=== PATIENT | female | born 1990 | race Hispanic/Latino ===

== ENCOUNTER 2022-12-25 18:18 | Inpatient (IN) | payer BC, SELFPAY ==
[2022-12-26] MEDS ORDERED: hydrALAZINE 20 MG/ML VIAL SLOW IVP PRN (00:03)
[2022-12-26] MEDS ORDERED: Acetaminophen 325 MG TAB PO PRN (00:05)
[2022-12-26] MEDS ORDERED: Ondansetron ODT 4 MG TAB PO PRN (00:05)
[2022-12-26] MEDS ORDERED: Calcium Carbonate 500 MG ChewTAB PO PRN (00:05)
[2022-12-26 01:25] VITALS: BMI 44.6
[2022-12-26 04:59] LABS: Hematocrit 37.3 % (36.0-47.0); Hemoglobin 12.5 g/dL (12.0-16.0); Mean Corpuscular HGB CONC 33.5 g/dL (32.0-36.0); Mean Corpuscular Volume 89.7 fl (78.0-98.0); Mean Platelet Volume 9.7 fL (7.4-10.4); Platelet Count 335 10x3/uL (130-400); RBC Distribution Width 13.2 % (11.5-14.5); Red Blood Cell (RBC) Count 4.16 mill/uL (4.20-5.40)
[2022-12-26 05:23] LABS: Manual Diff?? YES
[2022-12-26 05:24] LABS: Delete Auto Diff?? YES
[2022-12-26 05:30] LABS: Anion Gap 16 mmol/L (10-20); BUN (Urea Nitrogen) 10 mg/dL (7.0-18.7); Calc. Creatinine Clearance 198 mL/min (70-130); Calcium 8.9 mg/dL (7.8-10.44); Carbon Dioxide 18 mmol/L (22-29); Cardiac Risk 2.7 (Less than 4.5); Chloride 109 mmol/L (98-107); Cholesterol 146 mg/dl (< 200 Desired); Estimated GFR 115; Glucose 97 mg/dL (70-105); HDL Cholesterol 55 mg/dL (>60 Neg Risk); LDL Cholesterol, Calculated 60 mg/dL; Potassium 3.5 mmol/L (3.5-5.1); Sodium 139 mmol/L (136-145); Triglycerides 154 mg/dL (Less than 150)
[2022-12-26 06:13] LABS: Band 1 % (5-11); CellaVision Operator ID LAB.CLH1; Eosinophils 1 % (0-10); Hypochromia SLIGHT = 6-15 cells HPF (0-5); Lymphocytes 42 % (21-51); Monocytes 7 % (0-10); Neutrophil 48 % (42-75); Platelet Adequacy Comment Platelets Normal; Total Cell Count 100
[2022-12-26] MEDS: Aspirin 81 mg Enteric Coated Tablet PO SCH (08:08)
[2022-12-26 13:22] LABS: INR-International Normal Ratio 0.9; PTT 32.4 sec (22.9-36.1); Prothrombin Time 12.8 sec (12.0-14.7)
[2022-12-26 13:23] LABS: D-Dimer Test 0.4 *mcg/mL (0.27-0.43)
[2022-12-26 14:25] LABS: HEX PHOS LA Tube 1 46.7 SEC; HEX PHOS LA Tube 2 39.3 SEC; Hexagonal Phospholipid Neut 7.4 SEC (0-8.0)
[2022-12-26] MEDS ORDERED: Atorvastatin Calcium 40 MG TAB PO SCH (21:00)
[2022-12-27] MEDS ORDERED: BuPROPion XL 150 MG ER.TAB PO SCH (09:00)
[2022-12-27] MEDS: Aspirin 81 mg Enteric Coated Tablet PO SCH (09:04)
[2022-12-27 12:06] VITALS: BP 131/90; TEMP 98.3
[2022-12-27 13:44] LABS: Cardiolipin IgA Ab 4.8 APL-U/mL (<14 Negative); Cardiolipin IgG Ab 0.7 GPL-U/mL (<10 Negative); Cardiolipin IgM Ab Less than 0.9 MPL-U/mL (<10 Negative); EliA APS New Method **** NEW METHOD ****
== END 2022-12-27 13:52 | disposition home or self-care (01) | DRG 65 ==
LOC: ERS 18:18 → 2SE 23:21 → OBSVTOIN 12-26 14:52
PROVIDERS: ADMIT Student in an Organized Health Care Education/Training Program; ATTEND Internal Medicine
DX: I63.9 Cerebral infarction, unspecified (principal); G81.94 Hemiplegia, unspecified affecting left nondominant side; F32.A Depression, unspecified; F41.9 Anxiety disorder, unspecified; F90.9 Attention-deficit hyperactivity disorder, unspecified type; E78.5 Hyperlipidemia, unspecified; Z90.49 Acquired absence of other specified parts of digestive tract
CPT/HCPCS: 36415; 70551; 80048; 80061; 83090; 85025; 85300; 85303; 85305; 85307; 85379; 85598; 85610; 85730; 86147; 93306; 99285

== ENCOUNTER 2025-02-22 16:09 | Observation (INO) | payer BC, OTHER ==
[~2025-02-22 16:09] MED LIST: Iopamidol 370 76% 100 ML VIAL ONE
[2025-02-22 16:31] LABS: #Basophils 0.05 10x3/uL (0.0-0.2); #Eosinophils 0.10 10x3/uL (0.0-0.7); #Monocytes 0.63 10x3/uL (0.11-0.59); #Neutrophils 7.52 10x3/uL (1.40-6.50); %Basophils 0.4 % (0.0-1.0); %Eosinophils 0.8 % (0.0-10.0); %Lymphocytes 36.0 % (21.0-51.0); %Monocytes 4.8 % (0.0-10.0); %Neutrophils 57.5 % (42.0-75.0); Hematocrit 42.6 % (36.0-47.0); Hemoglobin 13.9 g/dL (12.0-16.0); Mean Corpuscular Hemoglobin 29.6 pg (27.0-31.0); Mean Corpuscular Volume 90.8 fL (78.0-98.0); Platelet Count 308 10x3/uL (130-400); Red Blood Cell (RBC) Count 4.69 mill/uL (4.20-5.40); White Blood Cell (WBC) Count 13.06 10x3/uL (4.8-10.8)
[2025-02-22 16:49] LABS: INR-International Normal Ratio 1.0; Prothrombin Time 12.9 sec (12.0-14.7)
[2025-02-22 16:50] LABS: PTT 33.4 sec (22.9-36.1)
[2025-02-22 16:51] LABS: ALT (SGPT) 20 U/L (Less than 34); AST (SGOT) 31 U/L (11-34); Albumin 4.2 g/dL (3.1-4.5); Alkaline Phosphatase 117 U/L (40-110); Anion Gap 16 mmol/L (10-20); BUN (Urea Nitrogen) 10 mg/dL (7.0-18.7); Bilirubin, Total 0.4 mg/dL (0.3-1.2); Calc. Creatinine Clearance 0 mL/min (70-130); Calcium 9.1 mg/dL (7.8-10.44); Carbon Dioxide 19 mmol/L (22-29); Chloride 109 mmol/L (98-107); Globulin 3.4 g/dL (2.4-3.5); Glucose 99 mg/dL (70-105); Potassium 5.3 mmol/L (3.5-5.1); Sodium 139 mmol/L (136-145)
[2025-02-22] MEDS ORDERED: Aspirin Chewable 81 MG TAB ONE (17:28)
[2025-02-22] MEDS ORDERED: Ondansetron PF 4 MG/2 ML Vial IVP PRN (18:16)
[2025-02-22] MEDS ORDERED: hydrALAZINE 20 MG/ML VIAL SLOW IVP PRN (18:16)
[2025-02-22] MEDS ORDERED: Calcium Carbonate 500 MG ChewTAB PO PRN (18:16)
[2025-02-22] MEDS ORDERED: Electrolyte Replacement Protocol 1 EACH FS SCH (18:30)
[2025-02-22] MEDS ORDERED: PHOS-NAK 1 PKT PACK PO PRN (18:45)
[2025-02-22] MEDS ORDERED: Magnesium 2 GM/50 ML(in water) 2 GM in Premix 1 BAG IVPB PRN (18:45)
[2025-02-22] MEDS ORDERED: Potassium Chloride 20 MEQ in Premix 1 BAG IVPB PRN (18:45)
[2025-02-22] MEDS ORDERED: Senokot S 8.6-50 MG TAB PO PRN (21:00)
[2025-02-23 00:16] VITALS: BMI 47.7
[2025-02-23] MEDS: Acetaminophen 325 MG TAB PO PRN (00:35)
[2025-02-23] MEDS: Melatonin 3 MG TAB PO PRN (00:36)
[2025-02-23 04:03] LABS: #Basophils 0.05 10x3/uL (0.0-0.2); #Eosinophils 0.20 10x3/uL (0.0-0.7); #Monocytes 0.59 10x3/uL (0.11-0.59); #Neutrophils 4.83 10x3/uL (1.40-6.50); %Basophils 0.6 % (0.0-1.0); %Eosinophils 2.2 % (0.0-10.0); %Lymphocytes 36.7 % (21.0-51.0); %Monocytes 6.6 % (0.0-10.0); %Neutrophils 53.6 % (42.0-75.0); Hematocrit 38.5 % (36.0-47.0); Hemoglobin 12.6 g/dL (12.0-16.0); Mean Corpuscular Hemoglobin 29.6 pg (27.0-31.0); Mean Corpuscular Volume 90.6 fL (78.0-98.0); Platelet Count 279 10x3/uL (130-400); Red Blood Cell (RBC) Count 4.25 mill/uL (4.20-5.40); White Blood Cell (WBC) Count 9.00 10x3/uL (4.8-10.8)
[2025-02-23 04:19] LABS: Anion Gap 11 mmol/L (10-20); BUN (Urea Nitrogen) 14 mg/dL (7.0-18.7); Calc. Creatinine Clearance 241 mL/min (70-130); Calcium 8.6 mg/dL (7.8-10.44); Carbon Dioxide 23 mmol/L (22-29); Cardiac Risk 3.3 (Less than 4.5); Chloride 110 mmol/L (98-107); Cholesterol 135 mg/dl (< 200 Desired); Glucose 109 mg/dL (70-105); HDL Cholesterol 41 mg/dL (>60 Neg Risk); LDL Cholesterol, Calculated 76 mg/dL; Potassium 3.6 mmol/L (3.5-5.1); Sodium 140 mmol/L (136-145); Triglycerides 89 mg/dL (Less than 150)
[2025-02-23] MEDS: Aspirin 81 mg Enteric Coated Tablet PO SCH (08:52)
[2025-02-23] MEDS: Enoxaparin 40 MG (0.4 mL) SYRINGE SC SCH (08:52)
[2025-02-23 11:57] VITALS: TEMP 98.1
[2025-02-23 14:59] VITALS: BP 133/81
[2025-02-23] MEDS ORDERED: Enoxaparin 40 MG (0.4 mL) SYRINGE SC SCH (21:00)
== END 2025-02-23 15:37 | disposition home or self-care (01) ==
LOC: ERS 16:09 → ERHOLD 18:15 → 2SE 23:17
PROVIDERS: ADMIT Internal Medicine; ATTEND Hospitalist
DX: R20.0 Anesthesia of skin (principal); R20.2 Paresthesia of skin; E87.5 Hyperkalemia; Z79.82 Long term (current) use of aspirin; Z90.49 Acquired absence of other specified parts of digestive tract; Z79.899 Other long term (current) drug therapy
CPT/HCPCS: 36415; 36416; 70450; 70496; 70498; 70551; 70552; 71045; 76376; 80048; 80053; 80061; 83036; 84443; 84484; 85025; 85610; 85730; 93005; 96372; G0378; J1650; Q9967